=== PATIENT | female | born 1990 | race African-American/Black ===

== ENCOUNTER 2019-12-14 18:06 | Emergency (ER) | payer OTHER ==
[~2019-12-14] VITALS: Ht 154.9 cm; Wt 47.6 kg
[2019-12-14 18:33] VITALS: BP 160/94
[2019-12-14] MEDS ORDERED: PROAIR HFA8.5 GM INH (20:05)
[2019-12-14] MEDS ORDERED: FLEXERIL PO ×2 (20:10→20:32)
== END 2019-12-14 20:50 | disposition home or self-care (01) ==
LOC: ER 18:06
DX: M54.2 Cervicalgia (principal); R22.0 Localized swelling, mass and lump, head; H53.8 Other visual disturbances; J45.909 Unspecified asthma, uncomplicated; Z79.899 Other long term (current) drug therapy; V47.5XXA Car driver injured in collision with fixed or stationary object in traffic accident, initial encounter; Y93.89 Activity, other specified; Y92.488 Other paved roadways as the place of occurrence of the external cause; Y99.8 Other external cause status